=== PATIENT | female | born 1995 | race Two or more races ===

== ENCOUNTER 2017-12-15 17:28 | Emergency (ER) | payer OTHER | END 2017-12-15 19:21 | disposition home or self-care (01) | LOC: JERFT 17:28 | CPT/HCPCS: 99281-25 ==

== ENCOUNTER 2019-01-15 06:00 | Inpatient (IN) | payer OTHER ==
[~2019-01-15 06:00] MED LIST: CITRIC ACID/SODIUM CITRATE 30 ML UNIT-DOSE CUP PO ONE; ELECTROLYTE-148 SOLN 500 ML IV ONE
[2019-01-15] MEDS ORDERED: ELECTROLYTE-148 SOLN 1,000 ML IV SCH (06:30)
[2019-01-15 06:44] VITALS: BMI 26.8
[2019-01-15] MEDS ORDERED: ONDANSETRON 4 MG/2 ML VIAL IVPUSH PRN (07:27)
[2019-01-15] MEDS ORDERED: CITRIC ACID/SODIUM CITRATE 30 ML UNIT-DOSE CUP PO ONE (07:36)
--- NOTE | 2019-01-15 07:44 | HP ---
Past Medical History - Admission Chief Complaint: scheduled RLTCS History of Present Illness: 23yo @ 39wk here for scheduled RLTCS. 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: Alzheimer's, CVA, Dementia, Migraine, Multiple Sclerosis, Peripheral Neuropathy, Parkinson's, Seizure, Syncope, TIA, Vertigo, Other Cardiovascular: No: AFIB, Aneurysm, Aortic Insufficiency, Aortic Stenosis, CAD, CHF, Deep Vein Thrombosis, HTN, Hyperlipdemia, NC, Mitral Insufficiency, Mitral Stenosis, Murmur, Pulmonary Hypertension, Other Pulmonary: No: Asthma, Bronchitis, Cancer, COPD, O2 Dependent, Pneumonia, Previously Intubated, Pulmonary Embolus, Pulmonary Fibrosis, Sleep Apnea, Other Gastrointestinal: No: Ascites, Cancer, Constipation, Crohn's Disease, Diverticulitis, Diverticulosis, Esophageal Varices, Gastritis, GERD, GI Bleed, Hemorrhoids, Hiatal Hernia, Inflamatory Bowel Disease, Irritable Bowel Disease, Pancreatitis, Peptic Ulcer Disease, Ulcerative Colitis, Other Reproductive: No: Ectopic , Endometriosis, Fibroids, PID, Polycystic Ovary Syndrome, Postmenopausal, Other ...: 2 ...Para: 1 ...Term: 1 ...: 0 ...Spon : 0 ...Induced : 0 ...Multiple Gestation: 0 ...LMP: 04/15/18 ... Weeks Gestation by Dates: 39.2 ...EDC by Dates: 01/20/19 Heme/Onc: Yes: Anemia Infectious Disease: No: AIDS, C-Diff, Herpes Zoster, HIV, MRSA, STD's, Tuberculosis, VREF, Other Psych: No: Addictions, Anxiety, Bipolar, Depression, Panic, Psychosis, Schizophrenia, Other Rheumatology: No: Fibromyalgia, Gout, Lupus, Rheumatoid Arthritis, Sarcoidosis, Vasculitis, Other ENT: No: Allergic Rhinitis, Sinusitis, Other - Past Surgical History Past Surgical History: Yes: Hx Myomectomy: No Hx Transabdominal Cerclage: No - Smoking History Smoking history: Never smoked Have you smoked in the past 12 months: No - Alcohol/Substance Use Hx Alcohol Use: No History of Substance Use: reports: None - Social History Usual Living Arrangement: Yes: With Parent ADL: Independent History of Recent Travel: No (From [facility]) Home Medications - Allergies Allergies/Adverse Reactions: Allergies Allergy/AdvReac Type Severity Reaction Status Date / Time No Known Allergies Allergy Verified 01/15/19 06:53 - Home Medications Home Medications: Ambulatory Orders Ferrous Sulfate [Iron] 325 mg PO DAILY 12/02/18 Vit,Calc76/Iron/Folic [Pnv 29-1 Tablet] 1 tab PO DAILY 12/02/18 Physical Exam - Maternity Vital Signs: Vital Signs Temperature 98.6 F 01/15/19 06:00 Pulse Rate 82 01/15/19 06:00 Respiratory Rate 20 01/15/19 06:00 Blood Pressure 102/58 L 01/15/19 06:00 O2 Sat by Pulse Oximetry (%) Constitutional: Yes: Well Nourished, No Distress, Calm Eyes: Yes: WNL, Conjunctiva Clear, EOM Intact HENT: Yes: WNL, Atraumatic, Normocephalic Neck: Yes: WNL, Supple, Trachea Midline Cardiovascular: Yes: WNL, Regular Rate and Rhythm Breast(s): Yes: WNL - Abdominal Exam/OB Number of Fetuses: Single Presentation: Vertex Contractions: No Category: I Accelerations: Non-Uniform Decelerations: None - Vaginal Exam/OB Vaginal Bleediing: No Amniotic Membrane Status: Intact - Physical Exam Edema: No Assessment/Plan 23yo @ 39wks here for elective RLTCS Admit IVFs Ancef SCDs Risks reviewed; consent signed Anjali Castañeda
[2019-01-15] MEDS ORDERED: morphine SULFATE/Preservative Free 0.5 MG/ML (1cc Syringe) ONE (07:53)
[2019-01-15] MEDS ORDERED: KETOROLAC TROMETHAMINE 30 MG/1 ML VIAL ONE (07:57)
[2019-01-15] MEDS ORDERED: ePHEDrine SULFATE 50 MG/1 ML AMPULE ONE (08:33)
[2019-01-15] MEDS ORDERED: PHENYLEPHRINE HCL 10 MG/1 ML SINGLE DOSE VIAL ONE (08:36)
[2019-01-15] MEDS ORDERED: ceFAZolin SODIUM 1 GM VIAL ONE (08:38)
[2019-01-15] MEDS ORDERED: OXYTOCIN 10 UNITS/ML VIAL ONE (08:40)
--- NOTE | 2019-01-15 09:18 | OP ---
Operative Note - Note: Operative Date: 01/15/19 Pre-Operative Diagnosis: Prior C/S, desires elective repeat C/S Operation: Repeat Low Transverse Findings: VMI, JACOBO position. No nuchal. No meconium. Weight pending. Apgars 6/8. Normal tubes and ovaries bilaterally. Post-Operative Diagnosis: Same as Pre-op Surgeon: Daina Castañeda Multi Sensor Operator: Srinivasan Santos Anesthesiologist/PAPER INSPECTOR: Fredy Souza Anesthesia: Spinal Estimated Blood Loss (mls): 400 Drains, Volume Out (mls): 100 Operative Report Dictated: Yes
[2019-01-15] MEDS ORDERED: METHYLERGONOVINE MALEATE 0.2 MG/1 ML AMP IM PRN (09:22)
[2019-01-15] MEDS ORDERED: IBUPROFEN 800 MG/8 ML IJ IVPB PRN (09:22)
[2019-01-15] MEDS ORDERED: WITCH HAZEL 50% (TUCKS) 40 PAD/JAR PAD TP PRN (09:22)
--- NOTE | 2019-01-15 09:48 | OP ---
DATE OF OPERATION: 01/15/2019 PREOPERATIVE DIAGNOSIS: A 39-week , prior section, desires elective repeat. POSTOPERATIVE DIAGNOSIS: A 39-week , prior section, desires elective repeat. PROCEDURE: Repeat low-transverse section. ANESTHESIA: Spinal. SURGEON: Daina Castañeda MD SONAR SUBSYSTEM EQUIPMENT OPERATOR: ROXANNE Elam ESTIMATED BLOOD LOSS: 400. INTRAVENOUS FLUIDS: Per anesthesia records. URINE OUTPUT: Clear urine 100 mL at the end of the procedure. FINDINGS: Viable male , JACOBO position. No nuchal. No meconium. Weight pending. Apgars 6, 8. Normal tubes and ovaries bilaterally. COMPLICATIONS: None. CONDITION: Stable to recovery room. NATURE OF THE PROCEDURE: After the appropriate consents were signed, patient was taken to the operating room. Spinal anesthesia was administered. A Barnett catheter was inserted into the bladder. The abdomen was then prepped and draped in a normal sterile fashion. A timeout was performed, confirming correct patient and procedure. Pfannenstiel skin incision was made through the skin and carried through the underlying layers until the fascia was nicked in the midline. The fascia was then extended laterally with the Ramon scissors. The inferior aspect of the fascia was grasped and tented upwards. The rectus muscles were dissected off bluntly and with the Ramon scissors. Attention was then paid to the superior aspect which was taken down in a similar fashion. The rectus muscles were grasped in the midline, tented upwards, and using a scalpel, the rectus muscles were in the midline. The peritoneum was then entered bluntly and extended manually. The bladder flap was created by nicking the uterine bladder reflection in the midline, extending it laterally with the Metzenbaum scissors. Bladder flap was then created digitally. The bladder blade was inserted and adjusted. The uterus was then incised in a low transverse fashion. Clear amniotic fluid was noted. 's head was delivered without difficulty as were the remaining shoulder and body. Infant was bulb suctioned on the field. Cord was clamped and cut, and the was handed off to the awaiting pediatric staff. The placenta was removed manually. The uterus was cleared of all clot and debris. The uterus was exteriorized. The lower uterine segment was closed in 2 layers with a 1-0 Vicryl with good hemostasis. The adnexa were inspected and noted to be normal. The uterus was returned to the abdominal cavity. The gutters were cleared of all clot and debris. The hysterotomy was re-inspected and noted to be hemostatic. The muscles were closed with a 2-0 chromic. The fascia was closed with a 0 Vicryl. Skin was closed with a 4-0 Biosyn. Sponge, lap, and needle counts were correct x3. The patient tolerated the procedure well. She was given 2 g of Ancef at the start of the procedure. She was taken from the operating room to the recovery room in stable condition. MD VALENTINE ARIAS/[id number]
[2019-01-15] MEDS ORDERED: FERROUS SO4 325 MG TABLET (FP) PO SCH ×2 (10:00→17:30)
[2019-01-15] MEDS ORDERED: PRENATAL VITAMINS W/ FOLIC ACID TABLET (FP) PO SCH (10:00)
[2019-01-15] MEDS ORDERED: OXYTOCIN 20 UNITS in 0.9% NS 20 UNIT/1,000 ML INFUS.BAG IV ONE (10:56)
[2019-01-15] MEDS: OXYTOCIN 20 UNITS in 0.9% NS 20 UNIT/1,000 ML INFUS.BAG IV SCH ×2 (11:00→18:30)
--- NOTE | 2019-01-15 12:58 | SURG ---
Surgery Livestock Auctioneer Note Livestock Auctioneer: Srinivasan Santos PA-C (Suzy) Date of Service: 01/15/19 Diagnosis: Prior C/S, desires elective repeat C/S Procedure: Repeat Low Transverse I was present for the entirety of the operative procedure. For further detail, please refer to operative report. Visit type - Case Type Case Type: Scheduled - Emergency Emergency Visit: No - New patient This patient is new to me today: Yes Date on this admission: 01/15/19 - Critical Care Critical Care patient: No
--- NOTE | 2019-01-16 08:06 | PN ---
Progress Note (short form) - Note Progress Note: pod1 , doing well, has mild cramps Last Vital Signs Temp Pulse Resp BP Pulse Ox 98.2 F 83 20 109/57 L 100 01/16/19 06:00 01/16/19 06:00 01/16/19 06:00 01/16/19 06:00 01/15/19 11:00 abdomen soft, no distension, no cva incision dry, clean no calf tenderness no excess vaginal bleeding plan ambulate advance diet cbc
--- NOTE | 2019-01-16 08:28 | PN ---
Progress Note (short form) - Note Progress Note: Post op day#1.S/P C Section under spinal anesthesia with duramorph uneventful.Patient stable and has little pain for which she in on medication.No any anesthesia related problem.Patient Dc from the anesthesia care.
[2019-01-16 08:31] LABS: BASO % 0.7 % (0-2.0); EOS % 0.5 % (0-4.5); HEMATOCRIT 29.7 % (32.4-45.2); HEMOGLOBIN 9.9 GM/dL (10.7-15.3); LYMPH % 14.2 % (8-40); MCH 30.7 pg (25.7-33.7); MCHC 33.2 g/dl (32.0-36.0); MEAN CELL VOLUME 92.5 fl (80-96); MEAN PLT VOLUME 9.7 fl (7.5-11.1); MONO % 5.9 % (3.8-10.2); NEUT % 78.7 % (42.8-82.8); PLATELET COUNT 174 K/MM3 (134-434); RBC 3.21 M/mm3 (3.60-5.2); RDW 14.3 % (11.6-15.6); WHITE BLOOD COUNT 9.1 K/mm3 (4.0-10.0)
[2019-01-16] MEDS ORDERED: BISACODYL 10 MG SUPP.RECT RC PRN (09:22)
[2019-01-16] MEDS: PRENATAL VITAMINS W/ FOLIC ACID TABLET (FP) PO SCH (09:38)
[2019-01-16] MEDS: FERROUS SO4 325 MG TABLET (FP) PO SCH ×2 (09:38→17:26)
[2019-01-16] MEDS: ACETAMINOPHEN 325 MG TABLET (FP) PO PRN ×2 (13:52→19:35)
[2019-01-16] MEDS: SIMETHICONE 80 MG TAB.CHEW (FP) PO PRN ×2 (13:52→19:35)
[2019-01-16] MEDS: oxyCODONE HCL 5 MG TABLET PO PRN ×2 (13:53→19:34)
[2019-01-16] MEDS ORDERED: DIPHTH,PERTUSS(ACELL),TET 0.5 ML DISP.SYRIN IM ONE (14:00)
[2019-01-17] MEDS: oxyCODONE HCL 5 MG TABLET PO PRN (02:22)
[2019-01-17] MEDS: ACETAMINOPHEN 325 MG TABLET (FP) PO PRN ×3 (02:23→23:56)
[2019-01-17] MEDS: SIMETHICONE 80 MG TAB.CHEW (FP) PO PRN ×2 (02:29→23:56)
--- NOTE | 2019-01-17 06:10 | PN ---
Post Progress Note - Subjective Subjective: doing well, no issues, minimal pain Post Day: 2 Type of Delivery: Repeat C/S Vital Signs: Vital Signs Temperature 98.1 F 01/16/19 20:18 Pulse Rate 68 01/16/19 20:18 Respiratory Rate 20 01/16/19 20:18 Blood Pressure 101/48 L 01/16/19 20:18 O2 Sat by Pulse Oximetry (%) 100 01/15/19 11:00 Breast Exam: Yes: Soft Uterus: Yes: Fundus Firm Abdomen/GI: Yes: Abdomen soft Lochia: Yes: Rubra Lochia, amount: Small Extremities: Yes: Calves non-tender Perineum: Yes: Intact Activity: Ambulating - Labs Labs: CBC WBC 9.1 K/mm3 (4.0-10.0) 01/16/19 07:50 RBC 3.21 M/mm3 (3.60-5.2) L 01/16/19 07:50 Hgb 9.9 GM/dL (10.7-15.3) L 01/16/19 07:50 Hct 29.7 % (32.4-45.2) L 01/16/19 07:50 MCV 92.5 fl (80-96) 01/16/19 07:50 MCH 30.7 pg (25.7-33.7) 01/16/19 07:50 MCHC 33.2 g/dl (32.0-36.0) 01/16/19 07:50 RDW 14.3 % (11.6-15.6) 01/16/19 07:50 Plt Count 174 K/MM3 (134-434) 01/16/19 07:50 MPV 9.7 fl (7.5-11.1) 01/16/19 07:50 Absolute Neuts (auto) 7.1 K/mm3 (1.5-8.0) 01/16/19 07:50 Neutrophils % 78.7 % (42.8-82.8) D 01/16/19 07:50 Lymphocytes % 14.2 % (8-40) D 01/16/19 07:50 Monocytes % 5.9 % (3.8-10.2) 01/16/19 07:50 Eosinophils % 0.5 % (0-4.5) 01/16/19 07:50 Basophils % 0.7 % (0-2.0) 01/16/19 07:50 Nucleated RBC % 0 % (0-0) 01/16/19 07:50 Assessment/Plan pain meds oob reg diet
[2019-01-17] MEDS: FERROUS SO4 325 MG TABLET (FP) PO SCH ×2 (08:20→17:12)
[2019-01-17] MEDS: PRENATAL VITAMINS W/ FOLIC ACID TABLET (FP) PO SCH (09:04)
[2019-01-17] MEDS: IBUPROFEN 600 MG TABLET (FP) PO PRN ×2 (17:12→23:56)
[2019-01-18 07:01] LABS: BASO % 1.9 % (0-2.0); EOS % 3.5 % (0-4.5); HEMATOCRIT 29.2 % (32.4-45.2); HEMOGLOBIN 9.8 GM/dL (10.7-15.3); LYMPH % 39.9 % (8-40); MCH 30.7 pg (25.7-33.7); MCHC 33.5 g/dl (32.0-36.0); MEAN CELL VOLUME 91.7 fl (80-96); MEAN PLT VOLUME 9.8 fl (7.5-11.1); MONO % 9.6 % (3.8-10.2); NEUT % 45.1 % (42.8-82.8); PLATELET COUNT 192 K/MM3 (134-434); RBC 3.19 M/mm3 (3.60-5.2); RDW 14.6 % (11.6-15.6); WHITE BLOOD COUNT 5.5 K/mm3 (4.0-10.0)
[2019-01-18] MEDS: PRENATAL VITAMINS W/ FOLIC ACID TABLET (FP) PO SCH (09:39)
[2019-01-18] MEDS: FERROUS SO4 325 MG TABLET (FP) PO SCH (09:39)
[2019-01-18 11:07] VITALS: BP 96/59; PULSE 69; TEMP 98.6
--- NOTE | 2019-01-20 16:57 | PATH ---
Surgical Pathology Report Patient Name: CAROL PACHECO [facility]. Rec. #: [id number] /Age/Gender: 1995 (Age: 23) / F Account: [id number] [facility] OBS/LOCOMOTIVE PIPE FITTER Taken: 01/15/2019 Received: 01/16/2019 Reported: 01/20/2019 Physicians: Daina Castañeda Specimen(s) Received PLACENTA Clinical History , 39.2 weeks for repeat Final Diagnosis PLACENTA: THIRD TRIMESTER PLACENTA. TRIVASCULAR CORD. MEMBRANES WITH NO DIAGNOSTIC ABNORMALITIES. Electronically Signed Elaine Stratton M.D. Gross Description The specimen is received fresh labeled placenta and is a 372 gram, 14.5 x 13.0 x 2.5 cm. placenta with attached membranes and umbilical cord. The attached membranes are barraza, translucent with focal opacities and insert marginally. The umbilical cord measures 30 cm. in length and averages 1 cm. in diameter. The cord inserts eccentrically, 4.5 cm. to the nearest margin. No true knots or strictures are identified. Cut surface of the umbilical cord reveals 3 vessels. The surface is robertson-blue with minimal fibrin deposition and appropriate caliber vessels. The maternal surface is red-brown with focal defects. Sectioning reveals red-brown, spongy parenchyma. No lesions are identified. Otr Owner Operator sections are submitted in three cassettes as follows: 1- membrane rolls and umbilical cord; 2-3- full thickness sections of placenta. /01/19/2019 [facility]01/19/2019
== END 2019-01-18 13:45 | disposition home or self-care (01) | DRG 540 ==
LOC: JLDR 06:00 → J3W 13:03
PROVIDERS: ADMIT Obstetrics & Gynecology; ATTEND Obstetrics & Gynecology
PROC: 10D00Z1 Extraction of Products of Conception, Low, Open Approach (ICD-10-PCS; principal; 2019-01-15)
DX: O34.219 Maternal care for unspecified type scar from previous cesarean delivery (principal); Z3A.39 39 weeks gestation of pregnancy; Z37.0 Single live birth
CPT/HCPCS: 36415; 85025; 85610; 86593; 86850; 86900; 86901; 88307-TC; 90715

== ENCOUNTER 2019-01-22 14:40 | Emergency (ER) | payer OTHER | END 2019-01-22 16:19 | disposition home or self-care (01) | LOC: JERFT 14:40 ==

== ENCOUNTER 2021-08-22 02:30 | Inpatient (IN) | payer OTHER ==
[2021-08-22] MEDS ORDERED: CITRIC ACID/SODIUM CITRATE 30 ML UNIT-DOSE CUP PO ONE (04:23)
[2021-08-22] MEDS ORDERED: ELECTROLYTE-148 SOLN 1,000 ML IV SCH (04:30)
[2021-08-22 04:38] LABS: INR 1.1 (0.83-1.09); PROTHROMBIN TIME (PATIENT) 12.9 SEC (9.7-13.0)
[2021-08-22 04:40] LABS: ACTIVATED PTT 25.9 SECONDS (25.2-36.5)
[2021-08-22 04:48] LABS: ALBUMIN 2.3 g/dl (3.4-5.0); CALCIUM 7.2 mg/dL (8.5-10.1)
[2021-08-22 04:49] LABS: BLOOD UREA NITROGEN 5.5 mg/dL (7-18)
[2021-08-22] MEDS ORDERED: morphine SULFATE/PF 1 MG/2 ML (2cc Syringe - QUVA) ONE (04:50)
[2021-08-22] MEDS ORDERED: ePHEDrine SULFATE 50 MG/1 ML AMPULE ONE (04:50)
[2021-08-22 04:51] LABS: CREATININE 0.4 mg/dL (0.55-1.3)
[2021-08-22] MEDS ORDERED: SODIUM CHLORIDE 0.9% P/F 10 ML VIAL IJ ONE (04:51)
[2021-08-22 04:53] LABS: BILIRUBIN,TOTAL 0.2 mg/dL (0.2-1); TOT PROT 5.4 g/dl (6.4-8.2)
[2021-08-22] MEDS ORDERED: IBUPROFEN 800 MG/8 ML IJ IVPB PRN (04:58)
[2021-08-22] MEDS ORDERED: ACETAMINOPHEN 325 MG TABLET (FP) PO PRN ×2 (04:58→06:14)
[2021-08-22] MEDS ORDERED: OXYTOCIN 20 UNITS in 0.9% NS 20 UNIT/1,000 ML INFUS.BAG IV SCH (05:00)
[2021-08-22 05:11] LABS: BASO % 0.8 % (0-2.0); EOS % 2.1 % (0-4.5); HEMATOCRIT 28.5 % (32.4-45.2); HEMOGLOBIN 9.6 GM/dL (10.7-15.3); LYMPH % 34.2 % (8-40); MCH 30.1 pg (25.7-33.7); MCHC 33.7 g/dl (32.0-36.0); MEAN CELL VOLUME 89.2 fl (80-96); MEAN PLT VOLUME 9.9 fl (7.5-11.1); MONO % 9.7 % (3.8-10.2); NEUT % 53.2 % (42.8-82.8); PLATELET COUNT 187 10^3/uL (134-434); RBC 3.19 M/mm3 (3.60-5.2); RDW 14.5 % (11.6-15.6); WHITE BLOOD COUNT 5.7 K/mm3 (4.0-10.0)
[2021-08-22] MEDS ORDERED: ceFAZolin SODIUM 1 GM VIAL ONE (05:29)
[2021-08-22] MEDS ORDERED: OXYTOCIN 10 UNITS/ML VIAL ONE (05:29)
[2021-08-22] MEDS ORDERED: KETOROLAC TROMETHAMINE 30 MG/1 ML VIAL ONE (05:45)
[2021-08-22] MEDS ORDERED: ONDANSETRON 4 MG/2 ML VIAL ONE (05:53)
[2021-08-22] MEDS ORDERED: morphine SULFATE/PF 1 MG/2 ML (2cc Syringe - QUVA) EP ONE (06:14)
[2021-08-22 06:46] VITALS: BMI 27.3
[2021-08-22] MEDS ORDERED: oxyCODONE HCL 5 MG TABLET PO PRN (16:58)
[2021-08-22] MEDS: IBUPROFEN 600 MG TABLET (FP) PO PRN (23:15)
[2021-08-22] MEDS: SIMETHICONE 80 MG TAB.CHEW (FP) PO PRN (23:15)
[2021-08-23] MEDS ORDERED: BISACODYL 10 MG SUPP.RECT RC PRN (04:58)
[2021-08-23] MEDS: SIMETHICONE 80 MG TAB.CHEW (FP) PO PRN ×4 (06:19→21:58)
[2021-08-23] MEDS: IBUPROFEN 600 MG TABLET (FP) PO PRN ×4 (06:20→21:59)
[2021-08-23 08:45] LABS: BASO % 0.9 % (0-2.0); EOS % 1.4 % (0-4.5); HEMATOCRIT 26.9 % (32.4-45.2); LYMPH % 27.8 % (8-40); MCH 30.2 pg (25.7-33.7); MCHC 33.5 g/dl (32.0-36.0); MEAN CELL VOLUME 90.1 fl (80-96); MEAN PLT VOLUME 9.6 fl (7.5-11.1); MONO % 7.9 % (3.8-10.2); PLATELET COUNT 171 10^3/uL (134-434); RBC 2.99 M/mm3 (3.60-5.2); RDW 14.7 % (11.6-15.6)
[2021-08-23] MEDS ORDERED: DIPHTH,PERTUSS(ACELL),TET 0.5 ML DISP.SYRIN IM ONE (10:00)
[2021-08-24] MEDS: SIMETHICONE 80 MG TAB.CHEW (FP) PO PRN ×3 (05:49→20:21)
[2021-08-24] MEDS: IBUPROFEN 600 MG TABLET (FP) PO PRN ×2 (05:49→15:38)
[2021-08-25] MEDS: IBUPROFEN 600 MG TABLET (FP) PO PRN ×2 (00:41→10:29)
[2021-08-25 07:51] LABS: BASO % 1.8 % (0-2.0); EOS % 4.5 % (0-4.5); HEMATOCRIT 27.4 % (32.4-45.2); LYMPH % 30.9 % (8-40); MCH 30.1 pg (25.7-33.7); MCHC 33.1 g/dl (32.0-36.0); MEAN PLT VOLUME 9.6 fl (7.5-11.1); MONO % 5.9 % (3.8-10.2); NEUT % 56.9 % (42.8-82.8); PLATELET COUNT 190 10^3/uL (134-434); RBC 3.01 M/mm3 (3.60-5.2); RDW 14.9 % (11.6-15.6); WHITE BLOOD COUNT 5.7 K/mm3 (4.0-10.0)
[2021-08-25] MEDS: SIMETHICONE 80 MG TAB.CHEW (FP) PO PRN (10:29)
[2021-08-25 11:31] VITALS: BP 104/68; PULSE 71; TEMP 98.4
== END 2021-08-25 12:30 | disposition home or self-care (01) | DRG 540 ==
LOC: JLDR 02:30 → J3W 08:00
PROVIDERS: ADMIT Student in an Organized Health Care Education/Training Program; ATTEND Student in an Organized Health Care Education/Training Program
PROC: 10D00Z1 Extraction of Products of Conception, Low, Open Approach (ICD-10-PCS; principal; 2021-08-22)
DX: O42.02 Full-term premature rupture of membranes, onset of labor within 24 hours of rupture (principal); O34.211 Maternal care for low transverse scar from previous cesarean delivery; Z3A.38 38 weeks gestation of pregnancy; Z37.0 Single live birth
CPT/HCPCS: 36415; 80053; 85025; 85610; 85730; 86762; 86780; 86850; 86900; 86901; 87340; 88307-TC; 90715; C9803; U0003; U0005